=== PATIENT | female | born 1990 | race Caucasian/White ===

== ENCOUNTER 2018-03-15 14:16 | Emergency (ER) | END 2018-03-15 17:20 | disposition home or self-care (01) ==

== ENCOUNTER 2018-03-22 06:27 | Emergency (ER) | END 2018-03-22 08:23 | disposition home or self-care (01) ==

== ENCOUNTER 2018-06-07 17:13 | Emergency (ER) | END 2018-06-07 22:35 | disposition home or self-care (01) ==